=== PATIENT | male | born 1945 | race Caucasian/White ===

== ENCOUNTER 2021-03-01 07:10 | Inpatient (IN) | payer MEDICARE ==
[~2021-03-01] VITALS: Ht 177.8 cm; Wt 76.4 kg
[~2021-03-01 07:10] MED LIST: ASPI81CH; Aspirin EC81 MG PO; B Complex #11 EACH; CALCIUM-VITAMI1 EACH; CRANBERRY450 M1; ERGO400 PO; FISH1000; Keflex500 MG PO; METF500C PO; Norco 5-325 Ta1 EACH PO; OMEG1CAP30; OMEP20ER; ONE DAILY FOR1 EAC1; OSTEO BI-FLEX1 EAC2; PANT40; PSYL5.85P; [UNRECOGNIZED DRUG - OTHER]
[2021-03-01] MEDS ORDERED: TURMERIC1 GM (07:53)
[2021-03-01] MEDS ORDERED: MAGNESIUM OXID500 MG (07:53)
[2021-03-01 07:55] LABS: BASOPHILS ABSOLUTE AUTO 0.04 K/mm3 (0.00-0.23); BASOPHILS PERCENT AUTO 0 % (0-2); EOSINOPHILS ABSOLUTE AUTO 0.12 K/mm3 (0.00-0.68); EOSINOPHILS PERCENT AUTO 1 % (0-6); Hematocrit 38.3 % (37.0-53.0); Hemoglobin 12.6 g/dL (13.5-17.5); IMMATURE GRAN ABSOLUTE AUTO 0.06 K/mm3 (0.00-0.10); IMMATURE GRAN PERCENT AUTO 1 % (0-1); LYMPHOCYTES ABSOLUTE AUTO 1.64 K/mm3 (0.84-5.20); LYMPHOCYTES PERCENT AUTO 13 % (21-46); MONOCYTES ABSOLUTE AUTO 0.59 K/mm3 (0.16-1.47); MONOCYTES PERCENT AUTO 5 % (4-13); Mean Corpuscular HGB 31.3 pg (26.0-34.0); Mean Corpuscular HGB Conc 32.9 g/dL (31.5-36.5); Mean Corpuscular Volume 95 fL (80-100); NEUTROPHILS ABSOLUTE AUTO 10.66 K/mm3 (1.96-9.15); NEUTROPHILS PERCENT AUTO 81 % (41-73); Platelet Count 213 K/mm3 (150-400); RDW Coefficient Variation 12.9 % (11.7-14.2); RDW Standard Deviation 45.2 fL (35.1-46.3); Red Blood Cell Count 4.03 M/mm3 (4.30-5.90); White Blood Cell Count 13.11 K/mm3 (4.00-11.30)
[2021-03-01 08:16] LABS: Alanine Aminotransfer (ALT/SGP 40 U/L (12-78); Albumin, Blood 3.3 g/dL (3.4-5.0); Albumin/Globulin Ratio 0.9 (0.8-1.8); Alk Phos 96 U/L (50-136); Anion Gap 4 mmol/L (6-16); Aspartate Aminotrans (AST/SGOT 37 U/L (12-37); Bilirubin, Total 0.5 mg/dL (0.1-1.0); Blood Urea Nitrogen 19 mg/dL (8-24); CO2, Blood 27 mmol/L (21-32); Calcium, Blood 8.5 mg/dL (8.5-10.1); Chloride, Blood 108 mmol/L (98-108); Creatinine, Blood 0.79 mg/dL (0.60-1.20); Globulin, Blood 3.5 g/dL (2.2-4.0); Glomerular Filtration Rate >60 (60-); Glucose, Blood 158 mg/dL (70-99); Potassium, Blood 4.1 mmol/L (3.5-5.5); Sodium, Blood 139 mmol/L (136-145); Total Protein, Blood 6.8 g/dL (6.4-8.2)
--- NOTE | 2021-03-01 12:40 | NUR ---
PT ARRIVED TO THE MEDICAL FLOOR FROM THE ER A/OX3, VIA GURNEY, PT WAS UP TO THE BED WITH MINIMAL ASSIST, PT APPEARS TO BE BREATHING EASILY AT THIS TIME ON RA, THE PT DENIES ANY PAIN AT THIS TIME, THE PT WAS ORIENTED TO THE ROOM LAYOUT AND CALL SYSTEM, CALL LIGHT IN REACH, WILL CONTINUE TO MONITOR AND ASSESS FOR CHANGES
[2021-03-01 14:22] LABS: Hematocrit 35.2 % (37.0-53.0); Hemoglobin 11.9 g/dL (13.5-17.5)
--- NOTE | 2021-03-01 17:19 | NUR ---
PT IS A/OX3, PLEASANT AND COOPERATIVE, THE PT APPEARS TO BE BREATHING EASILY ON RA AT THIS TIME, THE PT DENIES ANY PAIN, N/V, OR SOB, THE PT SINCE ARRIVING TO THE FLOOR FROM THE ER TODAY HAS NOT HAD ANY BLOODY STOOLS OR ANY OTHER STOOLS, DR. MACE WAS CALLED FOR CONSULT EVAN TODAY BUT HAS NOT SEEN THE PT YET, THE PT IS NPO, IS AT THE BEDSIDE, CALL LIGHT IN REACH, WILL CONTINUE TO MONITOR AND ASSESS FOR CHANGES
[2021-03-01 21:57] LABS: Hematocrit 34.8 % (37.0-53.0); Hemoglobin 11.7 g/dL (13.5-17.5)
--- NOTE | 2021-03-02 04:36 | NUR ---
SHIFT SUMMARY ADMITTED FOR REPORTED MELENA. FULL CODE. PLAN IS FOR COLONOSCOPY TODAY. DR WALL IS CONSULT. PT IS ON A CLEAR LIQUID DIET. HE WILL BE NPO AT NOON. D5LR IS INFUSING AT 75 ML/HR. NO MELENA REPORTED THIS SHIFT. WE WILL BEGIN BOWEL PREP AT ORDERED TIME. HE LIVES AT HOME WITH HIS .
--- NOTE | 2021-03-02 05:20 | NUR ---
COVID, PRE-PROCEDURE TEST PT HAS REFUSED TO ALLOW ME TO PERFORM A PRE-PROCEDURE COVID TEST FOR THIS PT. I WILL PASS THIS ON TO DAY SHIFT, PERHAPS THEY WILL BE SUCCESSFUL
[2021-03-02 05:21] LABS: Hematocrit 33.8 % (37.0-53.0); Hemoglobin 11.2 g/dL (13.5-17.5); Mean Corpuscular HGB 31.4 pg (26.0-34.0); Mean Corpuscular HGB Conc 33.1 g/dL (31.5-36.5); Mean Corpuscular Volume 95 fL (80-100); Mean Platelet Volume 9.6 fL (9.1-12.4); Platelet Count 180 K/mm3 (150-400); RDW Coefficient Variation 13.2 % (11.7-14.2); RDW Standard Deviation 46.1 fL (35.1-46.3); Red Blood Cell Count 3.57 M/mm3 (4.30-5.90)
[2021-03-02 06:04] LABS: Anion Gap 4 mmol/L (6-16); Blood Urea Nitrogen 11 mg/dL (8-24); Bun/Creatinine Ratio 15.8 (12.0-20.0); CO2, Blood 28 mmol/L (21-32); Calcium, Blood 8.3 mg/dL (8.5-10.1); Chloride, Blood 109 mmol/L (98-108); Glomerular Filtration Rate >60 (60-); Glucose, Blood 126 mg/dL (70-99); Potassium, Blood 3.7 mmol/L (3.5-5.5); Sodium, Blood 141 mmol/L (136-145)
[2021-03-02 08:48] LABS: Influenza A, PCR NEGATIVE (NEGATIVE); Influenza B, PCR NEGATIVE (NEGATIVE); Resp Syncytial Virus, PCR NEGATIVE (NEGATIVE); SARS-Cov-2 (COVID-19) PCR, MMC NEGATIVE (NEGATIVE)
--- NOTE | 2021-03-02 12:10 | NUR ---
RAPID RESPONSE- ON CARE ROUNDING THE PT WAS UP ON THE COMODE, PT HAS BEEN INDEPENDENT SO ASKED HOW LONG HE HAD BEEN SITTING THERE. PT STATED ABOUT 10-15 MINUTES. ASKED THE PT IF HE COULD STAND SO THE RN COULD VISUALIZE THE OUTPUT, EMPTIED CONTENTS NOT MEASURED FOR EXACT VOLUME, AT LEAST 500ML OF DENISSE RED BLOOD WAS IN THE COMMODE. REPLACED THE BUCKET AND ASKED THE PT TO SIT BACK DOWN. PT STATED HE WAS STARTING TO FEEL DIZZY "LIKE I DID WHEN I PASSED OUT BEFORE." VITALS CHECKED, CALLED ASSISTANT PROFESSOR OF PSYCHOLOGY FOR SUPPORT, BP 70/32, PT PALE, HEAD LOLLED AND ROLLED BACK. PT UNRESPONSIVE ON THE COMMODE SLIGHTLY RECLINED, ASSISTANT PROFESSOR OF PSYCHOLOGY PRESENT, STERNAL RUB GAINED NO RESPONSE; ASSISTANT PROFESSOR OF PSYCHOLOGY CALLED RECREATION ENGINEER. PT BEGAN TO VOMIT CLEAR LIQUID, TRIED TO TIP HIM FORWARD TO PREVENT ASPIRATION, PT WAS RIGID IN THE RECLINED POSITION. PT REGAINED CONCIOUSNESS, WAS ASSISTED 2PA TO THE BED, BED PLACED IN THE REVERSE [place] POSSITION IV FLUID BOLUS STARTED. ADDITIONAL RN CALLED DR BRICEÑO FOR ORDERS. H&H CHECKED, SBP UP IN THE 120'S. PT PLACED ON BEDREST. CAME BACK IN TO SEE THE PT. ORDERED TO CANCEL TRANSFER TO PCU, PT VS STABLE AT THIS TIME. CALLED DR WALL (GI)- PT PLANNED FOR LOWER SCOPE; INFORMED OF THE RECREATION ENGINEER SITUATION, PLAN CHANGED TO UPPER AND LOWER, PT HAS COMPLETED GOLYTELY AND BEEN NPO SINCE. PT INFORMED OF THE CHANGE.
--- NOTE | 2021-03-02 12:15 | NUR ---
CALLED DR. MANUEL ABOUT PATIENT--ALMOST PASSED OUT WHILE ON BSC, B.P. 70'S OVER 30. LIFTED BACK TO BED. PER MD--TRANSFER TO PCU, GIVE 1 LITER NACL BOLUS, TYPE AND CROSS FOR 3 UNITS AND GIVE ONE UNIT NOW. TO COME UP AND SEE PATIENT WITH POSSIBLE ADJUSTING THESE ORDERS. PATIENT NURSE IN ROOM TAKING CARE OF PATIENT.
--- NOTE | 2021-03-02 12:30 | NUR ---
DR BRICEÑO AT THE BEDSIDE HGB RESULT 11.1 ORDER RECIEVED TO HOLD OFF ON ANY TRANSFUSIONS AT THIS TIME. BUT OK TO DRAW THE TYPE AND CROSS TO GET READY IN THE EVENT THE PT NEEDS IT.
[2021-03-02 12:42] LABS: BASOPHILS ABSOLUTE AUTO 0.02 K/mm3 (0.00-0.23); BASOPHILS PERCENT AUTO 0 % (0-2); EOSINOPHILS ABSOLUTE AUTO 0.05 K/mm3 (0.00-0.68); EOSINOPHILS PERCENT AUTO 1 % (0-6); Hematocrit 33.6 % (37.0-53.0); Hemoglobin 11.1 g/dL (13.5-17.5); IMMATURE GRAN ABSOLUTE AUTO 0.03 K/mm3 (0.00-0.10); IMMATURE GRAN PERCENT AUTO 0 % (0-1); LYMPHOCYTES ABSOLUTE AUTO 1.68 K/mm3 (0.84-5.20); LYMPHOCYTES PERCENT AUTO 24 % (21-46); MONOCYTES ABSOLUTE AUTO 0.64 K/mm3 (0.16-1.47); MONOCYTES PERCENT AUTO 9 % (4-13); Mean Corpuscular HGB 31.8 pg (26.0-34.0); Mean Corpuscular Volume 96 fL (80-100); Mean Platelet Volume 9.3 fL (9.1-12.4); NEUTROPHILS ABSOLUTE AUTO 4.64 K/mm3 (1.96-9.15); NEUTROPHILS PERCENT AUTO 66 % (41-73); Platelet Count 181 K/mm3 (150-400); RDW Coefficient Variation 13.2 % (11.7-14.2); RDW Standard Deviation 46.8 fL (35.1-46.3); Red Blood Cell Count 3.49 M/mm3 (4.30-5.90); White Blood Cell Count 7.06 K/mm3 (4.00-11.30)
[2021-03-02 13:15] LABS: Anion Gap 5 mmol/L (6-16); Blood Urea Nitrogen 10 mg/dL (8-24); Bun/Creatinine Ratio 12.6 (12.0-20.0); CO2, Blood 28 mmol/L (21-32); Calcium, Blood 8.4 mg/dL (8.5-10.1); Chloride, Blood 108 mmol/L (98-108); Glomerular Filtration Rate >60 (60-); Glucose, Blood 145 mg/dL (70-99); Potassium, Blood 4.1 mmol/L (3.5-5.5); Sodium, Blood 141 mmol/L (136-145); Troponin I <0.015 ng/mL (0.000-0.040)
--- NOTE | 2021-03-02 14:17 | NUR ---
PT TO DAY SURGERY.
--- NOTE | 2021-03-02 14:45 | NUR ---
03/02/21 1445 RAZ GARCÍA History, Chart, Medications and Allergies reviewed before start of procedure. 3-LEAD EKG REVIEWED WITH PHYSICIAN PRIOR TO START OF PROCEDURE. O2 VIA POM INTACT THROUGHOUT SEDATION/PROCEDURE. MONITOR INTACT WITH CONTINUOUS PULSE OXIMETRY AND INTERMITTENT BP. MAC WITH DR. GUAJARDO.
--- NOTE | 2021-03-02 14:47 | NUR ---
PT TRANSFERED TO [facility] WITH [facility] VIA GURNY FROM FLOOR. History, Chart, Medications and Allergies reviewed before start of procedure. Lungs clear T/O to Auscultation. Patient confirms NPO status and agrees with scheduled surgery. Pre-Op teaching done. Pt verbalizes understanding.
--- NOTE | 2021-03-02 19:52 | NUR ---
SHIFT SUMMARY- PT O2 SATS ARE MAINTAINING AT GREATER THAN 90% ON ROOM AIR. PT IN BED SHIVERING ORAL TEMP 98.4 HOWEVER PT HAD JUST TAKEN PO TYLENOL WITH TAP WATER. PT WAS SHAKING AND SEEMED TO BE BREATHING FAST AT THE TIME OF TYLENOL ADMINISTRATION, FULL SET OF VITALS PERFORMED. RESP RATE 28. THIS WAS AT SHIFT CHANGE, NIGHT RN ARRIVED, REPORTED FINDINGS TO HER. PT MAY NEED ANOTHER HGB CHECK OR MAY NEED O2 TO MAINTAIN HIS SATS. VEWS SCORE 3 PASSED ON TO NIGHT MERIT SYSTEM DIRECTOR VITALS TO BE DONE Q2 X3. PT STILL DENIES PAIN, STATED HE WAS PLANNING TO USE THE URINAL. BEDPAN ONLY FOR TOILETING AT THIS TIME. PASSED ON TO NIGHT RN IN BEDSIDE REPORT. PT IN BED CALL LIGHT IN REACH. NIGHT RN AWARE OF PT STATUS, SPOKE TO NIGHT EMERGENCY TELECOMMUNICATIONS DISPATCHER WELL.
--- NOTE | 2021-03-03 04:11 | NUR ---
SHIFT SUMMARY ADMITTED FOR MELENA/SYNCOPE. FULL CODE. SURGICAL CONSULT HAS BEEN CALLED TO DR KOVACS'S ANSWERING SERVICE. DR WALL IS GI CONSULT. NS INFUSING @ 75 ML/HR. PT RUNNING A LOW GRADE FEVER. HE IS A&O X4. WE HAVE REMAINED ON BEDREST, UTILIZING A BEDPAN AND URINAL SINCE SYNCOPAL EPISODE ON PREVIOUS SHIFT. TELEMETRY: NSR @ 85 BPM. NO MELENA OR SYNCOPE PRESENTING ON THIS SHIFT. ALL OTHER VITALS HAVE REMAINED WNL.
--- NOTE | 2021-03-03 08:39 | NUR ---
PER OK FOR CLEAR LIQUIDS TODAY. TO SEE LATER TODAY.
--- NOTE | 2021-03-03 11:30 | NUR ---
IN TO SEE PATIENT. NO B.M'S SO FAR TODAY. SURGEON TO WATCH H&H RESULTS AND IF ANY MORE BLEEDING BEFORE DOING ANYTHING FURTHER. PATIENT TO STAY ON CLEAR LIQUID DIET WITH NOTHING RED. IF PATIENT STARTS HAVING RECTAL BLEEDING SURGEON MAY ORDER; CT OR A BLEEDING STUDY TO SEE WHERE BLOOD IS COMING FROM. WCTW.
--- NOTE | 2021-03-03 11:38 | NUR ---
UPDATED ON PATIENT STAIS/CONDITION.
--- NOTE | 2021-03-03 12:28 | NUR ---
TALKED TO DR. MANUEL ABOUT H&H NOT ORDERED TODAY. ORDER CBC FOR TODAY. ADVISED NO B.M. TODAY. OK FOR PROTONIX FOR ONCE A DAY AT THIS TIME.
[2021-03-03 13:30] LABS: BASOPHILS ABSOLUTE AUTO 0.03 K/mm3 (0.00-0.23); BASOPHILS PERCENT AUTO 0 % (0-2); EOSINOPHILS ABSOLUTE AUTO 0.05 K/mm3 (0.00-0.68); EOSINOPHILS PERCENT AUTO 1 % (0-6); Hematocrit 30.8 % (37.0-53.0); Hemoglobin 10.2 g/dL (13.5-17.5); IMMATURE GRAN ABSOLUTE AUTO 0.03 K/mm3 (0.00-0.10); IMMATURE GRAN PERCENT AUTO 0 % (0-1); LYMPHOCYTES ABSOLUTE AUTO 1.76 K/mm3 (0.84-5.20); LYMPHOCYTES PERCENT AUTO 18 % (21-46); MONOCYTES ABSOLUTE AUTO 0.36 K/mm3 (0.16-1.47); MONOCYTES PERCENT AUTO 4 % (4-13); Mean Corpuscular HGB 32.6 pg (26.0-34.0); Mean Corpuscular HGB Conc 33.1 g/dL (31.5-36.5); Mean Corpuscular Volume 98 fL (80-100); NEUTROPHILS ABSOLUTE AUTO 7.49 K/mm3 (1.96-9.15); NEUTROPHILS PERCENT AUTO 77 % (41-73); Platelet Count 160 K/mm3 (150-400); RDW Coefficient Variation 13.6 % (11.7-14.2); RDW Standard Deviation 48.8 fL (35.1-46.3); Red Blood Cell Count 3.13 M/mm3 (4.30-5.90); White Blood Cell Count 9.72 K/mm3 (4.00-11.30)
--- NOTE | 2021-03-03 15:32 | NUR ---
ADMIT: 03/01/21 DISCHARGE: DX: bpbpr CC: cpeabody TONYA CALL: Met with Valentino, RESIDENCE: home with , family lives close by. CAREGIVER: self TARYN STOVALL (SPOUSE) DX: gastro reflux, peripheral neuropathy, see list DME:no record CCM: no record HOME HEALTH: no record SUMMARY: admit 03/01/21 03/03/21 Surgical consult today. Per Dr Weber ETA discharge not available at this time, depends on surgery, I will try to meet with patient to discuss discharge planning.cp 03/02/[address] Lynch, recommends surgery. Met with Valentino prior to EDG, updated the white board with and my contact. 1: BRBPR (bright red blood per rectum) A/P: Likely lower GI versus very brisk upper GI source
--- NOTE | 2021-03-03 18:11 | NUR ---
ALERT. ORIENTED. DENIES ANY DISCOMFORT. HAS NOT HAD A BOWEL MOVEMENT TODAY. ON CLEAR LIQUID DIET. IV INFUSING NACL. TOOK SHOWER WITHOUT HAVING ANY PROBLEMS. UNLABORED RESPIRATIONS. TELE ON AND HAS BEEN SR. WCTM
--- NOTE | 2021-03-04 04:22 | NUR ---
SHIFT SUMMARY ADMITTED FOR MELENA/SYNCOPE. FULL CODE. DR WALL IS GI CONSULT. NS INFUSING @ 75 ML/HR. NO MELENA THIS SHIFT. AWAITING MORNING LABS. DR KOVACS WAS CONSULTED TO SEE IF SURGERY IS INDICATED. FOR NOW IT IS DECIDED TO CONTINUE TO MONITOR. HE IS ON A CLEAR LIQUID DIET AT THIS TIME. TELEMETRY: NSR @ 69 BPM. NO NEW CONCERNS THIS SHIFT.
[2021-03-04 07:45] LABS: BASOPHILS ABSOLUTE AUTO 0.03 K/mm3 (0.00-0.23); BASOPHILS PERCENT AUTO 0 % (0-2); EOSINOPHILS ABSOLUTE AUTO 0.18 K/mm3 (0.00-0.68); EOSINOPHILS PERCENT AUTO 3 % (0-6); Hematocrit 28.6 % (37.0-53.0); Hemoglobin 9.6 g/dL (13.5-17.5); IMMATURE GRAN ABSOLUTE AUTO 0.02 K/mm3 (0.00-0.10); IMMATURE GRAN PERCENT AUTO 0 % (0-1); LYMPHOCYTES ABSOLUTE AUTO 1.34 K/mm3 (0.84-5.20); LYMPHOCYTES PERCENT AUTO 19 % (21-46); MONOCYTES ABSOLUTE AUTO 0.52 K/mm3 (0.16-1.47); MONOCYTES PERCENT AUTO 7 % (4-13); Mean Corpuscular HGB 32.2 pg (26.0-34.0); Mean Corpuscular HGB Conc 33.6 g/dL (31.5-36.5); Mean Corpuscular Volume 96 fL (80-100); Mean Platelet Volume 9.7 fL (9.1-12.4); NEUTROPHILS ABSOLUTE AUTO 5.05 K/mm3 (1.96-9.15); NEUTROPHILS PERCENT AUTO 71 % (41-73); Platelet Count 151 K/mm3 (150-400); RDW Coefficient Variation 13.2 % (11.7-14.2); RDW Standard Deviation 47.2 fL (35.1-46.3); Red Blood Cell Count 2.98 M/mm3 (4.30-5.90); White Blood Cell Count 7.14 K/mm3 (4.00-11.30)
--- NOTE | 2021-03-04 19:22 | NUR ---
SHIFT SUMMARY: PT A&O; CALM AND COOPERATIVE WITH CARE. NO C/O PAIN THIS SHIFT. BLOODY STOOL X1 THIS SHIFT; HOSPITALIST (DR MANUEL) AWARE; SURGICAL (DR KOVACS) NOTIFIED; ABD CT THIS SHIFT; ABD MRI PLANNED FOR THIS SHIFT. REPORT GIVEN TO ONCOMING RN.
[2021-03-04 21:29] LABS: Alpha Feto Protein, Tumor Mkr 0.9 ng/mL (0.0-8.0); Cancer Antigen 19-9 343.2 U/mL (2.0-37.0)
[2021-03-05 05:31] LABS: BASOPHILS PERCENT AUTO 0 % (0-2); EOSINOPHILS PERCENT AUTO 3 % (0-6); Hemoglobin 9.3 g/dL (13.5-17.5); LYMPHOCYTES PERCENT AUTO 16 % (21-46); MONOCYTES PERCENT AUTO 8 % (4-13); Mean Corpuscular HGB 32.7 pg (26.0-34.0); Mean Corpuscular HGB Conc 34.4 g/dL (31.5-36.5); Mean Corpuscular Volume 95 fL (80-100); Mean Platelet Volume 9.9 fL (9.1-12.4); NEUTROPHILS PERCENT AUTO 72 % (41-73); Platelet Count 152 K/mm3 (150-400); RDW Coefficient Variation 12.9 % (11.7-14.2); RDW Standard Deviation 45.1 fL (35.1-46.3); Red Blood Cell Count 2.84 M/mm3 (4.30-5.90); White Blood Cell Count 6.57 K/mm3 (4.00-11.30)
[2021-03-05 05:32] LABS: BASOPHILS ABSOLUTE AUTO 0.02 K/mm3 (0.00-0.23); EOSINOPHILS ABSOLUTE AUTO 0.19 K/mm3 (0.00-0.68); IMMATURE GRAN ABSOLUTE AUTO 0.02 K/mm3 (0.00-0.10); IMMATURE GRAN PERCENT AUTO 0 % (0-1); LYMPHOCYTES ABSOLUTE AUTO 1.08 K/mm3 (0.84-5.20); MONOCYTES ABSOLUTE AUTO 0.53 K/mm3 (0.16-1.47); NEUTROPHILS ABSOLUTE AUTO 4.73 K/mm3 (1.96-9.15)
--- NOTE | 2021-03-05 05:32 | NUR ---
SHIFT SUMMARY: VSS. AFEB. 02 96% ON RA. PT DENIES DIZZINESS OR SOB W/ EXERTION. NO BM'S OVERNIGHT. MAINTENANCE IV FLUIDS INFUSING. ABD SOFT, NON-TENDER, NON-DISTENDED. HGB 9.3 THIS AM. ROXY CLEAR LIQUIDS WELL. NO ACUTE OVERNIGHT EVENTS. WCTM.
[2021-03-05 05:59] LABS: Anion Gap 6 mmol/L (6-16); Blood Urea Nitrogen 6 mg/dL (8-24); Bun/Creatinine Ratio 8.2 (12.0-20.0); CO2, Blood 26 mmol/L (21-32); Chloride, Blood 109 mmol/L (98-108); Creatinine, Blood 0.73 mg/dL (0.60-1.20); Glomerular Filtration Rate >60 (60-); Glucose, Blood 122 mg/dL (70-99); Potassium, Blood 3.5 mmol/L (3.5-5.5); Sodium, Blood 141 mmol/L (136-145)
--- NOTE | 2021-03-05 16:53 | NUR ---
SHIFT SUMMARY PT IS AOX4 AND PLEASANT. PT DENIES PAIN, N/V, SOB. NO INCIDENCE OF BLOODY STOOLS TODAY. PT IS INDEPENDENT IN ROOM. PLAN IS TO POTENTIALLY BIOPSY LIVER MASS OUTPATIENT AND MONITOR HEMOGLOBIN OVER THE NEXT DAY. PT DID HAVE ONE EPISODE OF BRADYCARDIA 48 WHILE SLEEPING THIS MORNING, BUT QUICKLY RESOLVED. APPETITE IS GOOD. PT HAD DAUGHTER VISITING THIS LEXI. PT IS IN BED, CALL LIGHT IN REACH, LOW POSITION.
--- NOTE | 2021-03-06 03:13 | NUR ---
SHIFT SUMMARY: VSS. TEMP 99.2. 02 96% ON RA. DENIES SOB, DIZZINESS, LIGHTHEADEDNESS WHEN UP AMBULATING. ROXY ACTIVITY IN ROOM WELL. ABD SOFT, NON-TENDER, NON-DISTENDED. NO BM TONIGHT. ROXY REGULAR DIET WELL. NO N/V. DENIES PAIN. AAOX4, COMMUNICATES NEEDS. MAINTENANCE IV FLUIDS INFUSING PER ORDERS. NSR, 78 PER TELE SLOT EDITOR. WCTM.
[2021-03-06 05:31] LABS: BASOPHILS ABSOLUTE AUTO 0.03 K/mm3 (0.00-0.23); BASOPHILS PERCENT AUTO 1 % (0-2); EOSINOPHILS ABSOLUTE AUTO 0.27 K/mm3 (0.00-0.68); EOSINOPHILS PERCENT AUTO 4 % (0-6); Hematocrit 27.3 % (37.0-53.0); Hemoglobin 9.4 g/dL (13.5-17.5); IMMATURE GRAN ABSOLUTE AUTO 0.03 K/mm3 (0.00-0.10); IMMATURE GRAN PERCENT AUTO 1 % (0-1); LYMPHOCYTES ABSOLUTE AUTO 1.25 K/mm3 (0.84-5.20); LYMPHOCYTES PERCENT AUTO 20 % (21-46); MONOCYTES PERCENT AUTO 8 % (4-13); Mean Corpuscular HGB 32.5 pg (26.0-34.0); Mean Corpuscular HGB Conc 34.4 g/dL (31.5-36.5); Mean Corpuscular Volume 95 fL (80-100); NEUTROPHILS ABSOLUTE AUTO 4.28 K/mm3 (1.96-9.15); NEUTROPHILS PERCENT AUTO 67 % (41-73); Platelet Count 191 K/mm3 (150-400); RDW Standard Deviation 44.6 fL (35.1-46.3); Red Blood Cell Count 2.89 M/mm3 (4.30-5.90); White Blood Cell Count 6.36 K/mm3 (4.00-11.30)
--- NOTE | 2021-03-06 14:39 | NUR ---
DISCHARGE NOTE PT IS AOX4. PT IV'S REMOVED BY THIS RN ON DC. DC INSTRUCTIONS AND MEDICATIONS REVIEWED WITH PT AND WHO VERBALIZED AN UNDERSTANDING. NO REFERRALS MADE BY PHYSICIAN UPON DC BUT PHYSICIAN DISCUSSED REFERRAL TO [facility] FOR GI CONSULT ON LIVER MASS AN OUTPATIENT. DANIELLE WILL CONTACT PT FOR APPOINTMENTS. PT DRESSED SELF IN HOME CLOTHING. BELONGINGS GATHERED AND PRESENT WITH PT ON DC. PT WALKED OFF UNIT WITH ENVIRONMENTAL SERVICES ATTENDANT AND HAS LEFT THE BUILDING.
--- NOTE | 2021-03-07 23:18 | NUR ---
SUMMARY: admit Dr Weber discharged Valentino home. Follow up Ousmane Dahl 1 week at [facility] will need to refer to Gastro . Recheck CBC one week. Avoid strenuous activity.
== END 2021-03-06 14:14 | disposition home or self-care (01) | DRG 378 ==
LOC: ER 07:10 → MEDS 07:11 → ERHOLD 07:11 → MEDS 07:12 → ERHOLD 09:27 → MEDS 09:27 → ER 09:27 → ERHOLD 12:35 → MEDS 12:35
PROVIDERS: Emergency Medicine; Internal Medicine Gastroenterology; Surgery; ADMIT Internal Medicine
PROC: 0DJ08ZZ Inspection of Upper Intestinal Tract, Via Natural or Artificial Opening Endoscopic (ICD-10-PCS; principal; 2021-03-02 15:00)
PROC: 0W3P8ZZ Control Bleeding in Gastrointestinal Tract, Via Natural or Artificial Opening Endoscopic (ICD-10-PCS; 2021-03-02 15:00)
DX: K57.31 Diverticulosis of large intestine without perforation or abscess with bleeding (principal); D62 Acute posthemorrhagic anemia; Z20.822 Contact with and (suspected) exposure to COVID-19; K21.9 Gastro-esophageal reflux disease without esophagitis; I95.9 Hypotension, unspecified; R16.0 Hepatomegaly, not elsewhere classified; E78.5 Hyperlipidemia, unspecified; Z98.890 Other specified postprocedural states; Z98.42 Cataract extraction status, left eye; Z79.899 Other long term (current) drug therapy; Z79.84 Long term (current) use of oral hypoglycemic drugs; E11.42 Type 2 diabetes mellitus with diabetic polyneuropathy; G43.909 Migraine, unspecified, not intractable, without status migrainosus; K22.70 Barrett's esophagus without dysplasia; K64.8 Other hemorrhoids
CPT/HCPCS: 0241U; 36415; 74174; 74183; 80048; 80053; 82105; 82947; 84484; 85014; 85018; 85025; 85027; 86301; 86850; 86900; 86901; 93005; 93010; 93306; 96374; 99285-25; A9270; A9581; C9113; G0378; J0171; J2001; J2405; J2704; J7030; J7120; J7121; Q9967

== ENCOUNTER 2021-06-30 06:41 | Day surgery (SDC) | payer MEDICARE ==
[~2021-06-30] VITALS: Ht 177.8 cm; Wt 76.4 kg
[~2021-06-30 06:41] MED LIST changes: +CRANBERRY500 M1 PO; +FISH OIL 1,2001 EAC1 PO; +MAGNESIUM OXID500 MG; -PANT40; +PANT40 PO; +TRIDERM28.4 GM; +TURMERIC1 GM
== END 2021-06-30 08:48 | disposition home or self-care (01) ==
LOC: ORSCSDS 06:41
PROVIDERS: Internal Medicine Gastroenterology
PROC: 0DB58ZX Excision of Esophagus, Via Natural or Artificial Opening Endoscopic, Diagnostic (ICD-10-PCS; principal; 2021-06-30 08:00)
DX: K22.70 Barrett's esophagus without dysplasia (principal); K44.9 Diaphragmatic hernia without obstruction or gangrene; K21.9 Gastro-esophageal reflux disease without esophagitis; E11.9 Type 2 diabetes mellitus without complications; Z79.84 Long term (current) use of oral hypoglycemic drugs; Z79.899 Other long term (current) drug therapy
CPT/HCPCS: 82947; 88305; J2704; J7120